=== PATIENT | female | born 1970 | race African-American/Black ===

== ENCOUNTER 2019-11-24 08:50 | Outpatient (CLI) | payer OTHER, SELFPAY ==
--- NOTE | ~2019-11-24 | MM_ITS ---
EXAMINATION: MM screening [facility] BI w nichole HISTORY: Screening mammogram TECHNIQUE: Craniocaudal and mediolateral oblique 3-D tomosynthesis images were obtained and synthetic 2-D images were generated. CAD analysis was submitted and interpreted. COMPARISON: 10/13/2016, 10/04/2015 BREAST PARENCHYMAL COMPOSITION: The breasts are extremely dense, which lowers the sensitivity of mamm ography. FINDINGS: RIGHT BREAST: There is no evidence of suspicious mass, calcification, or architectural distortion to suggest malignancy. LEFT BREAST: There is possible architectural distortion the middle third of the upper outer quadrant of the breast 6 cm from the nipple. IMPRESSION: 1. Possible left breast architectural distortion. 2. Additional mammographic views and possible breast ultrasound are recommended. BI-RADS Category 0: Incomplete: Needs additional imaging evaluation. Reviewed, dictated and finalized at location A. IMPRESSION: 1. Possible left breast architectural distortion. 2. Additional mammographic views and possible breast ultrasound are recommended . BI-RADS Category 0: Incomplete: Needs additional imaging evaluation.
== END 2019-11-24 08:51 | disposition home or self-care (01) ==
LOC: ANHIMG 08:54
PROVIDERS: PCP Internal Medicine Infectious Disease; Visit Provider Internal Medicine Infectious Disease
DX: Z12.31 Encounter for screening mammogram for malignant neoplasm of breast (principal); R92.8 Other abnormal and inconclusive findings on diagnostic imaging of breast
CPT/HCPCS: 77063; 77067

== ENCOUNTER 2020-07-12 11:35 | Outpatient (CLI) | payer BC, SELFPAY ==
--- NOTE | ~2020-07-12 | MM_ITS ---
EXAMINATION: MM diagnostic [facility] LT w nichole HISTORY: Six-month follow-up after benign left breast biopsy TECHNIQUE: Craniocaudal, mediolateral, and mediolateral oblique 3-D tomosynthesis images of the left breast were performed and synthetic 2-D images were generated. CAD analysis was submitted and interpr eted. COMPARISON: 11/24/2019, 10/13/2016, 10/04/2015 BREAST PARENCHYMAL COMPOSITION: The breasts are extremely dense, which lowers the sensitivity of mamm ography. FINDINGS: There has been interval left breast biopsy in the area of the previously described architec tural distortion. Architectural distortion in the posterior third of the upper outer quadrant of the breast persists without significant change. There is no new mass or suspicious calcification. IMPRESSION: 1. Unchanged architectural distortion of the left breast with interval benign biopsy. 2. Recommend routine screening mammography protrusion BI-RADS Category 2: Benign finding(s). Reviewed, dictated and finalized at location A. [employer] IMPRESSION: 1. Unchanged architectural distortion of the left breast with interval benign b iopsy. 2. Recommend routine screening mammography protrusion BI-RADS Category 2: Benign finding(s).
== END 2020-07-12 11:36 | disposition home or self-care (01) ==
PROVIDERS: PCP Internal Medicine Infectious Disease; Visit Provider Internal Medicine Medical Oncology
DX: R92.8 Other abnormal and inconclusive findings on diagnostic imaging of breast (principal)
CPT/HCPCS: 77061; 77065; G0279

== ENCOUNTER 2020-12-14 11:11 | Outpatient (CLI) | payer BC, SELFPAY ==
--- NOTE | ~2020-12-14 | MMUS_ITS ---
EXAMINATION: MM diagnostic [facility] BI w nichole, US breast LT limited HISTORY: Follow-up after benign left breast biopsy TECHNIQUE: Craniocaudal, mediolateral, and mediolateral oblique 3-D tomosynthesis images of the breas ts were performed and synthetic 2-D images were generated. CAD analysis was submitted and interpreted . High resolution limited left breast ultrasound was performed. COMPARISON: 07/12/2020, 11/24/2019, 10/13/2016, 08/03/2016 BREAST PARENCHYMAL COMPOSITION: The breasts are extremely dense, which lowers the sensitivity of mamm ography. FINDINGS: MAMMOGRAPHIC FINDINGS: Left breast: There is stable architectural distortion in the upper outer quadrant of the left breast with an associated biopsy marker. There has been no suspicious interval change. No suspicious mass or calcification are identified. Right breast: There is no evidence of suspicious mass, calcification, or architectural distortion to suggest malignancy. There has been no suspicious interval change. ULTRASOUND: There is a 6 mm x 4 mm oval, circumscribed, parallel, hypoechoic mass with posterior acoustic enhance ment and no internal vascularity at the 2:00 location 1 cm from the nipple. IMPRESSION: 1. Stable left breast architectural distortion and probably benign sonographically detected left [address] mass. 2. Recommend 6 month follow-up left diagnostic mammogram and ultrasound. BI-RADS category 3, probably benign findings. Reviewed, dictated and finalized at location A. IMPRESSION: 1. Stable left breast architectural distortion and probably benign sonographica lly detected left breast mass. 2. Recommend 6 month follow-up left diagnostic mammogram and ultrasound. BI-RADS category 3, probably benign findings.
== END 2020-12-14 11:12 | disposition home or self-care (01) ==
LOC: ANHIMG 11:12
PROVIDERS: PCP Internal Medicine Infectious Disease; Visit Provider Surgery
DX: R92.8 Other abnormal and inconclusive findings on diagnostic imaging of breast (principal)
CPT/HCPCS: 76642; 77062; 77066; G0279

== ENCOUNTER 2021-06-13 11:26 | Outpatient (CLI) | payer BC, SELFPAY ==
--- NOTE | ~2021-06-13 | MMUS_ITS ---
EXAMINATION: MM diagnostic [facility] LT w nichole, US breast LT complete HISTORY: Six-month follow-up of stable left breast architectural distortion and probably benign sonog raphically detected left 2:00 6 x 4 mm breast mass TECHNIQUE: ML, MLO and craniocaudal full field and spot 3-D tomosynthesis images of were performed an d synthetic 2-D images were generated. CAD analysis was submitted and interpreted. High resolution co mplete left breast ultrasound including all 4 quadrants and subareolar area was performed. COMPARISON: 12/14/2020 bilateral diagnostic mammography and limited left breast ultrasound BREAST PARENCHYMAL COMPOSITION: The breasts are extremely dense, which lowers the sensitivity of mamm ography. FINDINGS: MAMMOGRAPHIC FINDINGS: There is a biopsy marker in the upper outer quadrant of the left breast with associated architectural distortion; history of prior benign left breast biopsy in 2019. No left breast suspicious mass or interval architectural distortion, malignant calcification, skin th ickening or retraction is detected. Since 12/14/2020. ULTRASOUND: There are 2 circumscribed solid lesions at 2:00, 1 at 2:00 1 cm from the nipple measuring 5 x 3 x 5 m m and the other at 2:00 7 cm from the nipple measuring 3 x 2 x 2 mm. No suspicious shadowing is noted . No suspicious mass or shadowing is detected elsewhere. IMPRESSION: 1. Benign findings 2. Routine mammographic screening is recommended BI-RADS Category 2: Benign finding(s). Reviewed, dictated and finalized at location A. IMPRESSION: 1. Benign findings 2. Routine mammographic screening is recommended BI-RADS Category 2: Benign finding(s).
== END 2021-06-13 11:27 | disposition home or self-care (01) ==
LOC: ANHIMG 11:29
PROVIDERS: PCP Internal Medicine Infectious Disease; Visit Provider Surgery
DX: R92.8 Other abnormal and inconclusive findings on diagnostic imaging of breast (principal)
CPT/HCPCS: 76641; 77061; 77065; G0279

== ENCOUNTER 2021-12-30 09:36 | Outpatient (CLI) | payer BC, SELFPAY ==
--- NOTE | ~2021-12-30 | MM_ITS ---
EXAMINATION: MM screening [facility] BI w nichole HISTORY: Screening TECHNIQUE: Craniocaudal and mediolateral oblique 3-D tomosynthesis images were obtained and synthetic 2-D images were generated. CAD analysis was submitted and interpreted. COMPARISON: Comparison to multiple prior studies sequentially, with oldest reviewed study dated 2015. BREAST PARENCHYMAL COMPOSITION: The breasts are extremely dense, which lowers the sensitivity of mamm ography FINDINGS: There is no evidence of suspicious mass, calcification, or architectural distortion to sugg est malignancy in either breast. There has been no suspicious interval change. IMPRESSION: 1. No mammographic evidence of malignancy. 2. Recommend routine screening mammography in one year. BI-RADS Category 1: Negative Reviewed, dictated and finalized at location A.
== END 2021-12-30 09:37 | disposition home or self-care (01) ==
LOC: ANHIMG 09:37
PROVIDERS: PCP Internal Medicine Infectious Disease; Visit Provider Surgery
DX: Z12.31 Encounter for screening mammogram for malignant neoplasm of breast (principal)
CPT/HCPCS: 77063; 77067

== ENCOUNTER 2022-02-06 01:54 | Day surgery (SDC) | payer BC, SELFPAY ==
[2022-01-24 13:17] VITALS: BMI 26.5
--- NOTE | 2022-02-05 15:56 | P.PNAN_ITS ---
Anes - Initial Pre Proc Eval Procedure: Operation Date: 02/06/22 12:30 Proposed Procedures p Screening Colonoscopy - Moustapha Reece MD Date/Time: 02/05/22 15:56 Surgeon: Moustapha Reece MD Pre Op Diagnosis: neoplasm screening Patient Data Age: 51 Gender: F Height: 1.78 m Weight: 84 kg Allergies Allergy/AdvReac Type Severity Reaction Status Date / Time banana Allergy Unknown throat Verified 02/06/22 11:05 sweeling ibuprofen Allergy Unknown gets sick Verified 02/06/22 11:05 Sulfa (Sulfonamide Allergy Unknown Hives Verified 02/06/22 11:05 Antibiotics) BANANAS Allergy Severe THROAT Uncoded 02/06/22 11:05 FELLS LIKE IT IS CLOSING UP,ITCHING Home Medications Medication Instructions Recorded Confirmed Type multivitamin (Multiple Vitamins 1 tablet PO DAILY 07/17/20 02/06/22 History tablet) albuterol 90 mcg/actuation aerosol 90 mcg inhalation DAILY PRN asthma 01/24/22 02/06/22 History inhaler ondansetron 4 mg disintegrating 4 mg PO Q4H #5 tabs 02/05/22 02/06/22 Rx tablet Patient hx anesthesia problems: none Family hx anesthesia problems: none Results Review: All pre-operative results and documents have been reviewed as part of the pre- operative evaluation. 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 Informed Consent: The patient's anesthetic plan and its attendant risks and benefits were discussed with the patient/family/POA. Questions were solicited and answers provided to the satisfaction of the patient/family/POA.
[2022-02-06 11:07] VITALS: PULSE 64; RESP 18; TEMP 36.5; O2SAT 100; BMI 26.3
[2022-02-06] MEDS: LACTATED RINGERS 1,000 ML 150 ML IV CONT (11:30)
--- NOTE | 2022-02-06 13:01 | WPDHPUPDATE1 ---
History and Physical Update Update Date/Time: 02/06/22 13:01 History and Physical has been reviewed, including an updated exam of the patient. Patient states she tolerated the prep fairly well last night with the use of 0DT Zofran. There are NO changes in the patient's condition. Risks, benefits, and alternatives have been discussed and questions answered. Patient agrees to proceed with procedure.
[2022-02-06 14:02] VITALS: BP 111/51; PULSE 76; RESP 16; O2SAT 100
[2022-02-06 14:12] VITALS: BP 106/49; PULSE 65; RESP 16; O2SAT 100
[2022-02-06 14:22] VITALS: BP 109/55; PULSE 77; RESP 16; O2SAT 100
--- NOTE | 2022-02-06 14:31 | SUR.PHASEII ---
RN notified Dr. Reece of patient's complaint of sore right eye and headache. Dr. Reece advised the patient to rest in a cool dark room to relieve the pain.
== END 2022-02-06 14:41 | disposition home or self-care (01) ==
PROVIDERS: PCP Internal Medicine Infectious Disease; Visit Provider Surgery
PROC: 0DJD8ZZ Inspection of Lower Intestinal Tract, Via Natural or Artificial Opening Endoscopic (ICD-10-PCS; CPT 45378; principal; 2022-02-06 12:30)
DX: Z12.11 Encounter for screening for malignant neoplasm of colon (principal); K57.30 Diverticulosis of large intestine without perforation or abscess without bleeding; J45.909 Unspecified asthma, uncomplicated; D64.9 Anemia, unspecified; Z79.51 Long term (current) use of inhaled steroids
CPT/HCPCS: 45378; J2704; J7120

== ENCOUNTER 2022-04-10 09:01 | Emergency (ER) | payer OTHER, BC, SELFPAY ==
--- NOTE | ~2022-04-10 | CT_ITS ---
EXAMINATION: CT lumbar spine wo con DATE: 04/10/2022 10:02 INDICATION: Low back pain radiating to the left leg TECHNIQUE: Computed tomography (CT) of the lumbar spine was performed without intravenous contrast. T he dose-length product was 1252.68 mGy-cm. COMPARISON: None FINDINGS: There is normal lumbar lordosis. There is moderate disc narrowing at L5-S1 with vacuum phen omena. There is mild facet hypertrophy and endplate hypertrophy at L5-S1 causing mild bilateral neura l foraminal narrowing. There is mild annular disc bulging at L2-3, L3-4 and L4-5 without significant associated spinal stenosis. No acute fracture or traumatic malalignment. No significant paraspinal so ft tissue abnormality. IMPRESSION: 1. Mild-moderate lumbar spondylosis with bilateral neural foraminal narrowing at L5-S1. Reviewed, dictated and finalized at location B. IMPRESSION: 1. Mild-moderate lumbar spondylosis with bilateral neural foraminal narrowing a t L5-S1.
[2022-04-10 09:06] VITALS: BP 130/52; PULSE 84; RESP 18; TEMP 36.4; O2SAT 100
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
[2022-04-10 10:11] VITALS: BP 111/92; PULSE 74; RESP 15; O2SAT 100
[2022-04-10] MEDS: ACETAMINOPHEN 500 MG TABLET 1000 MG PO (11:07)
[2022-04-10] MEDS: diazePAM INJ (*CRX) 10 MG/2 ML SYRINGE 5 MG IM (11:07)
== END 2022-04-10 11:45 | disposition home or self-care (01) ==
PROVIDERS: Emergency Provider Emergency Medicine; PCP Internal Medicine Infectious Disease
DX: M47.816 Spondylosis without myelopathy or radiculopathy, lumbar region (principal); J45.909 Unspecified asthma, uncomplicated; Z86.2 Personal history of diseases of the blood and blood-forming organs and certain disorders involving the immune mechanism; Z90.710 Acquired absence of both cervix and uterus
CPT/HCPCS: 72131; 96372; 99284; A9270; J3360